=== PATIENT | female | born 1945 | race Caucasian/White ===

== ENCOUNTER 2017-07-30 15:17 | Emergency (ER) | payer OTHER ==
[~2017-07-30] VITALS: Ht 170.2 cm; Wt 102.1 kg
[~2017-07-30 15:17] MED LIST: EXELON1 EACH; METFORMIN HCL850 MG; NEURONTIN300 MG PO; NORFLEX100MG PO; SYNTHROID100 MCG; TOPROL XL25 MG
== END 2017-07-30 19:49 | disposition home or self-care (01) ==
LOC: ER 15:17
DX: M54.31 Sciatica, right side (principal)